=== PATIENT | male | born 1955 | race Caucasian/White ===

== ENCOUNTER 2021-08-16 16:40 | Inpatient (IN) | payer BC ==
[2021-08-16] MEDS ORDERED: SODIUM CHLORIDE 0.9% 500 ML INFUS.BAG IV ONE (17:51)
[2021-08-16 17:55] LABS: ALBUMIN 2.7 g/dl (3.4-5.0); BILIRUBIN,TOTAL 1.1 mg/dl (0.2-1); MAGNESIUM 2.1 mg/dL (1.8-2.4); PHOSPHOROUS 3.3 mg/dl (2.5-4.9); TOT PROT 8.2 g/dl (6.4-8.2)
[2021-08-16 18:10] LABS: BASO % 0.6 % (0-2.0); EOS % 0.8 % (0-4.5); HEMATOCRIT 34.9 % (35.4-49); HEMOGLOBIN 11.5 GM/dL (11.7-16.9); LYMPH % 14.2 % (8-40); MCH 23.5 pg (25.7-33.7); MCHC 32.9 g/dl (32.0-35.9); MEAN CELL VOLUME 71.4 fl (80-96); MONO % 10.2 % (3.8-10.2); NEUT % 74.2 % (42.8-82.8); PLATELET COUNT 461 10^3/uL (134-434); RBC 4.89 M/mm3 (4.00-5.60); RDW 17.2 % (11.9-15.9); WHITE BLOOD COUNT 10.3 K/mm3 (4.0-10.0)
[2021-08-16] MEDS: RIFAXIMIN 550 MG TABLET PO SCH (21:55)
[2021-08-16 23:12] VITALS: BMI 24.1
[2021-08-17] MEDS: RIFAXIMIN 550 MG TABLET PO SCH ×3 (06:29→21:37)
[2021-08-17] MEDS ORDERED: SODIUM CHLORIDE 1,000 ML IV STA (14:43)
[2021-08-17] MEDS: SODIUM CHLORIDE 1,000 ML IV SCH (16:10)
[2021-08-17] MEDS: ENOXAPARIN NA (PORCINE) 40 MG/0.4 ML DISP.SYRIN SQ SCH (16:11)
[2021-08-17 21:14] LABS: N-TERMINAL BNP 144.8 pg/ml (5-125)
[2021-08-18] MEDS: RIFAXIMIN 550 MG TABLET PO SCH ×3 (06:21→21:38)
[2021-08-18 08:32] LABS: BILIRUBIN,TOTAL 0.8 mg/dl (0.2-1); CALCIUM 8.2 mg/dl (8.5-10); CREATININE 0.7 mg/dl (0.55-1.3); MAGNESIUM 1.9 mg/dL (1.8-2.4); TOT PROT 6.5 g/dl (6.4-8.2)
[2021-08-18 09:45] LABS: BASO % 0.8 % (0-2.0); EOS % 1.7 % (0-4.5); HEMATOCRIT 30.5 % (35.4-49); HEMOGLOBIN 9.6 GM/dL (11.7-16.9); LYMPH % 24.9 % (8-40); MCH 22.4 pg (25.7-33.7); MCHC 31.6 g/dl (32.0-35.9); MEAN CELL VOLUME 70.7 fl (80-96); MEAN PLT VOLUME 7.3 fl (7.5-11.1); NEUT % 60.6 % (42.8-82.8); PLATELET COUNT 391 10^3/uL (134-434); RBC 4.31 M/mm3 (4.00-5.60); RDW 16.9 % (11.9-15.9)
[2021-08-18] MEDS: ENOXAPARIN NA (PORCINE) 40 MG/0.4 ML DISP.SYRIN SQ SCH (15:29)
[2021-08-18] MEDS: FOLIC ACID 1 MG TABLET (FP) PO SCH (15:29)
[2021-08-18] MEDS: prednisoLONE ACETATE 1% OPHTH SUSP 5 ML BOTTLE OS SCH (15:30)
[2021-08-18] MEDS: SODIUM CHLORIDE 1,000 ML IV SCH (15:34)
[2021-08-18] MEDS: metoPROLOL SUCCINATE 25 MG TAB.SR.24H (FP) PO SCH (17:19)
[2021-08-18] MEDS: ASPIRIN COATED 81 MG TABLET.EC PO SCH (17:19)
[2021-08-19] MEDS: RIFAXIMIN 550 MG TABLET PO SCH ×3 (06:45→21:24)
[2021-08-19 08:23] LABS: BILIRUBIN,TOTAL 0.9 mg/dl (0.2-1); CALCIUM 8.4 mg/dl (8.5-10); CREATININE 0.8 mg/dl (0.55-1.3); MAGNESIUM 1.8 mg/dL (1.8-2.4); TOT PROT 6.2 g/dl (6.4-8.2)
[2021-08-19 09:59] LABS: BASO % 0.3 % (0-2.0); EOS % 1.8 % (0-4.5); HEMATOCRIT 29.7 % (35.4-49); HEMOGLOBIN 9.5 GM/dL (11.7-16.9); LYMPH % 25.3 % (8-40); MCH 22.6 pg (25.7-33.7); MCHC 31.8 g/dl (32.0-35.9); MEAN CELL VOLUME 71.1 fl (80-96); MEAN PLT VOLUME 7.4 fl (7.5-11.1); MONO % 12.5 % (3.8-10.2); NEUT % 60.1 % (42.8-82.8); PLATELET COUNT 349 10^3/uL (134-434); RBC 4.18 M/mm3 (4.00-5.60); RDW 17.1 % (11.9-15.9); WHITE BLOOD COUNT 9.4 K/mm3 (4.0-10.0)
[2021-08-19] MEDS: ENOXAPARIN NA (PORCINE) 40 MG/0.4 ML DISP.SYRIN SQ SCH (10:56)
[2021-08-19] MEDS: ASPIRIN COATED 81 MG TABLET.EC PO SCH (10:56)
[2021-08-19] MEDS: prednisoLONE ACETATE 1% OPHTH SUSP 5 ML BOTTLE OS SCH (10:56)
[2021-08-19] MEDS: FOLIC ACID 1 MG TABLET (FP) PO SCH (10:56)
[2021-08-19] MEDS: metoPROLOL SUCCINATE 25 MG TAB.SR.24H (FP) PO SCH (10:56)
[2021-08-19 15:37] LABS: IRON SERUM 13 ug/dL (50-175); TOTAL IRON BINDING CAPACITY 161 ug/dL (250-450)
[2021-08-19] MEDS: SODIUM CHLORIDE 1,000 ML IV SCH (15:51)
[2021-08-19] MEDS: ATORVASTATIN CA 20 MG TABLET (FP) PO SCH (21:24)
[2021-08-20] MEDS: RIFAXIMIN 550 MG TABLET PO SCH ×3 (07:01→21:12)
[2021-08-20] MEDS: metoPROLOL SUCCINATE 25 MG TAB.SR.24H (FP) PO SCH (10:15)
[2021-08-20] MEDS: FOLIC ACID 1 MG TABLET (FP) PO SCH (10:15)
[2021-08-20] MEDS: ENOXAPARIN NA (PORCINE) 40 MG/0.4 ML DISP.SYRIN SQ SCH (10:15)
[2021-08-20] MEDS: ASPIRIN COATED 81 MG TABLET.EC PO SCH (10:15)
[2021-08-20] MEDS: HYDROCORTISONE ACETATE 25 MG/SUPP.RECT PR SCH ×2 (10:15→21:12)
[2021-08-20] MEDS: prednisoLONE ACETATE 1% OPHTH SUSP 5 ML BOTTLE OS SCH (10:16)
[2021-08-20] MEDS: SODIUM CHLORIDE 1,000 ML IV SCH (15:24)
[2021-08-20] MEDS: ATORVASTATIN CA 20 MG TABLET (FP) PO SCH (21:12)
[2021-08-21] MEDS: RIFAXIMIN 550 MG TABLET PO SCH ×3 (06:35→21:15)
[2021-08-21 08:54] LABS: BILIRUBIN,TOTAL 0.8 mg/dl (0.2-1); CALCIUM 8.1 mg/dl (8.5-10); CREATININE 0.8 mg/dl (0.55-1.3); MAGNESIUM 1.9 mg/dL (1.8-2.4); TOT PROT 6.4 g/dl (6.4-8.2)
[2021-08-21 09:17] LABS: BASO % 0.3 % (0-2.0); HEMATOCRIT 29.1 % (35.4-49); HEMOGLOBIN 9.5 GM/dL (11.7-16.9); LYMPH % 27.5 % (8-40); MCH 22.9 pg (25.7-33.7); MCHC 32.8 g/dl (32.0-35.9); MEAN CELL VOLUME 69.7 fl (80-96); MEAN PLT VOLUME 7.1 fl (7.5-11.1); MONO % 13.6 % (3.8-10.2); NEUT % 56.6 % (42.8-82.8); PLATELET COUNT 328 10^3/uL (134-434); RBC 4.17 M/mm3 (4.00-5.60); RDW 16.9 % (11.9-15.9); WHITE BLOOD COUNT 7.6 K/mm3 (4.0-10.0)
[2021-08-21] MEDS ORDERED: POTASSIUM CHLORIDE TABS 20 MEQ TABLET.ER (FP) PO ONE (10:30)
[2021-08-21] MEDS ORDERED: MAGNESIUM OXIDE 400 MG TABLET (FP) PO ONE (10:30)
[2021-08-21] MEDS: FOLIC ACID 1 MG TABLET (FP) PO SCH (11:54)
[2021-08-21] MEDS: metoPROLOL SUCCINATE 25 MG TAB.SR.24H (FP) PO SCH (11:54)
[2021-08-21] MEDS: ASPIRIN COATED 81 MG TABLET.EC PO SCH (11:54)
[2021-08-21] MEDS: HYDROCORTISONE ACETATE 25 MG/SUPP.RECT PR SCH ×2 (11:54→21:14)
[2021-08-21] MEDS: prednisoLONE ACETATE 1% OPHTH SUSP 5 ML BOTTLE OS SCH (11:55)
[2021-08-21] MEDS: ENOXAPARIN NA (PORCINE) 40 MG/0.4 ML DISP.SYRIN SQ SCH (13:27)
[2021-08-21] MEDS: ATORVASTATIN CA 20 MG TABLET (FP) PO SCH (21:15)
[2021-08-22] MEDS: RIFAXIMIN 550 MG TABLET PO SCH ×2 (06:05→14:41)
[2021-08-22 08:44] LABS: CALCIUM 8.9 mg/dl (8.5-10); CREATININE 0.9 mg/dl (0.55-1.3); MAGNESIUM 1.9 mg/dL (1.8-2.4)
[2021-08-22] MEDS ORDERED: DEXTROSE 5%-0.45% SALINE 1,000 ML IV SCH (08:45)
[2021-08-22] MEDS: ASPIRIN COATED 81 MG TABLET.EC PO SCH (10:01)
[2021-08-22] MEDS: FOLIC ACID 1 MG TABLET (FP) PO SCH (10:02)
[2021-08-22] MEDS: ENOXAPARIN NA (PORCINE) 40 MG/0.4 ML DISP.SYRIN SQ SCH (10:02)
[2021-08-22] MEDS: HYDROCORTISONE ACETATE 25 MG/SUPP.RECT PR SCH (10:02)
[2021-08-22] MEDS: metoPROLOL SUCCINATE 25 MG TAB.SR.24H (FP) PO SCH (10:02)
[2021-08-22] MEDS: prednisoLONE ACETATE 1% OPHTH SUSP 5 ML BOTTLE OS SCH (10:05)
[2021-08-22 14:16] VITALS: BP 107/68; PULSE 59; TEMP 98.3
[2021-08-22] MEDS ORDERED: LORazepam 0.5 MG TABLET PO ONE (15:00)
== END 2021-08-22 15:55 | disposition short-term general hospital (02) | DRG 312 ==
LOC: FER 16:40 → FM/S 20:03 → OBSVTOIN 08-19 10:01 → FM/S 08-22 09:45
PROVIDERS: ADMIT Internal Medicine; ATTEND Nurse Practitioner Acute Care
DX: R55 Syncope and collapse (principal); I25.9 Chronic ischemic heart disease, unspecified; I10 Essential (primary) hypertension; E11.9 Type 2 diabetes mellitus without complications; R00.2 Palpitations; K52.9 Noninfective gastroenteritis and colitis, unspecified; R94.31 Abnormal electrocardiogram [ECG] [EKG]; R94.39 Abnormal result of other cardiovascular function study
CPT/HCPCS: 36415; 70450-TC; 71045-TC-FY; 78452-TC; 80048; 80053; 80061; 82140; 82272; 82607; 83010; 83036; 83540; 83550; 83615; 83735; 83880; 84100; 84443; 84484; 85025; 87045; 87046; 87177; 87209; 87324; 87449; 93005; 93017; 93306-TC; 93880-TC; 97116-GP; 97161-GP; 99285-25; A9502; C9803; G0378; U0003; U0005